=== PATIENT | female | born 1955 | race Caucasian/White ===

== ENCOUNTER → 2018-11-26 08:03 | Outpatient (CLI) | payer OTHER, SELFPAY ==
[2018-11-26 12:03] LABS: Absolute Lymphocyte Count 2.72 X10^3/ul (0.83-4.51); Absolute Neutrophil Count 3.8 X10^3/uL (2.0-7.7); Basophil# 0.08 X10^3/uL; Basophil% 1.1 % (0-1); Eosinophils% 4.1 % (0-5); Hemoglobin 15.4 g/dl (12.0-15.0); Lymphocyte # 2.72 X10^3/ul (4.0); Lymphocyte % 37.4 % (19-41); Mean Corp Hgb Conc 32.8 g/gl (32-36); Mean Corpuscular Hgb 29.6 pg (27.0-32.0); Mean Corpuscular Volume 90.4 fL (81-99); Mean Platelet Vol. 9.5 fl (6.2-12.0); Monocyte# 0.39 X10^3/uL; Monocyte% 5.4 % (0-10); Neutrophil # 3.75 X10^3/uL (2.7-7.7); Neutrophil % 51.6 % (47-70); Platelet Count 306 K/mm3 (150-450); RBC Distribution Width CV 13.1 % (11.6-14.6); RBC Distribution Width SD 42.5 fl (35.1-43.9); White Blood Count 7.3 K/mm3 (4.4-11.0)
[2018-11-26 12:04] LABS: POSITIVE COUNT NO; POSITIVE DIFFERENTIAL NO; POSITIVE MORPHOLOGY NO
[2018-11-26 12:19] LABS: ALB/GLOB Ratio 0.9 RATIO (0.9-2.4); AST(SGOT) 20 U/L (15-37); Alanine Aminotransfer ALT/SGPT 29 U/L (13-56); Albumin, Serum 3.6 g/dL (3.2-5.0); Alkaline Phosphatase 120 U/L (45-117); Anion Gap 10 (5-15); BUN 11 mg/dL (7-18); BUN/Creat Ratio 12.5 RATIO (10-20); Calcium,Total 8.9 mg/dL (8.5-10.1); Chloride 102 mmol/L (98-107); Cholesterol 190 mg/dL (200); Creatinine, Serum 0.88 mg/dL (0.55-1.02); EST Glomerular Filtration Rate 69 mL/min (>60); Est Glom Filt Rate - Afr Amer 84 mL/min (>60); Globulin 3.8 g/dL (2.2-4.2); Glucose 86 mg/dL (74-106); High Density Lipoprotein 61 mg/dL; Potassium 4.3 mmol/L (3.5-5.1); Protein, Total 7.4 g/dL (6.4-8.2); Sodium Level 138 mmol/L (136-145); Triglycerides 71 mg/dL; Very Low Density Lipoprotein 14 mg/dL (5-40)
== END ==
PROVIDERS: Family Provider Family Medicine; PCP Family Medicine; Visit Provider Family Medicine
DX: Z00.01 Encounter for general adult medical examination with abnormal findings (principal); I10 Essential (primary) hypertension
CPT/HCPCS: 36415; 80053; 80061; 85025

== ENCOUNTER → 2018-12-11 09:14 | Outpatient (CLI) | payer OTHER, SELFPAY ==
[2015-10-13 10:06] VITALS: BMI 33.0
--- NOTE | 2018-12-11 09:19 | BI_ITS ---
MAMMOGRAPHY - BILATERAL SCREENING REASON FOR EXAM: Female, 62 years old. Routine annual screening examination. PERTINENT HISTORY: Aunt with breast cancer. TECHNIQUE: Digital bilateral breast tan (3D mammographic acquisition) in the CC and MLO projections. 2-D mediolateral oblique (MLO) and craniocaudad (CC) views of both breasts were obtained. CAD: Full Field Digital Mammography with Computer Added Detection was performed. COMPARISON: Comparison is made with prior study dated September 17, 2017 and January 26, 2016. FINDINGS: Breast Composition: There are scattered areas of fibroglandular density. There are no dominant masses or suspicious calcifications. Stable benign-appearing bilateral axillary lymph nodes. No other significant abnormalities are identified. There has been no significant change since the prior study. BI/SCREENING MAMM (CAD), BILAT IMPRESSION: Stable bilateral screening mammogram. Yearly follow-up mammogram recommended. (A) ASSESSMENT CATEGORY: BIRADS Category 2: Benign. A letter regarding these results will be sent to the patient by the facility within 30 days. Approximately 10% of breast cancers are not detected by mammography. A normal mammogram should not delay biopsy of a clinically suspicious abnormality. [id number] Electronically Signed: Saad Butterfield, at 14:42 EST , Service support ,
--- NOTE | 2018-12-11 09:50 | RAD_ITS ---
STUDY: X-RAY - LUMBAR SPINE REASON FOR EXAM: Female, 62 years old. Pain TECHNIQUE: 5 view(s) of the lumbar spine were obtained. COMPARISON: None FINDINGS: Normal lumbar lordosis. There is no substantial scoliosis. There is a normal alignment of the vertebrae. Normal vertebral bodies. Minimal spurring of the endplates. Normal disc space heights. The soft tissue structures are unremarkable. RAD/L/S Spine Min 4 Views IMPRESSION: Minimal degenerative changes of the lumbar spine. Electronically Signed: Gavin Owen DO at 10:30 EST Tel [phone], Service support ,
--- NOTE | 2018-12-11 09:50 | RAD_ITS ---
STUDY: X-RAY - RIGHT HIP REASON FOR EXAM: Female, 62 years old. Pain TECHNIQUE: 3 views of the hip. COMPARISON: None. FINDINGS: Normal femoral head, neck, intertrochanteric region and visualized proximal femur. Normal acetabulum. Normal hip joint. Normal visualized superior and inferior pubic rami and ischial tuberosities. Sclerosis at the pubic tubercles. RAD/HIP, UNI W/ Pelvis 2-3 Views IMPRESSION: Normal x-ray examination of the hip. Electronically Signed: Gavin Owen DO at 10:22 EST Tel [phone], Service support ,
--- NOTE | 2018-12-11 09:50 | RAD_ITS ---
STUDY: X-RAY - LEFT SHOULDER REASON FOR EXAM: Female, 62 years old. Pain TECHNIQUE: 4 view(s) of the shoulder. COMPARISON: None. FINDINGS: Normal glenohumeral articulation. Normal acromioclavicular joint. Normal acromion. Mild spurring at the humeral. The soft tissue structures are unremarkable. Normal visualized pulmonary apex. RAD/Shoulder min 2 Views IMPRESSION: No acute bony injury of the shoulder. Electronically Signed: Gavin Owen DO at 23:58 EST Tel [phone], Service support ,
== END ==
PROVIDERS: Family Provider Family Medicine; PCP Family Medicine; Visit Provider Family Medicine
DX: M54.5 Low back pain (principal); M25.512 Pain in left shoulder; M25.551 Pain in right hip; Z12.31 Encounter for screening mammogram for malignant neoplasm of breast
CPT/HCPCS: 72110; 73030; 73502; 77063; 77067

== ENCOUNTER 2019-01-20 09:06 | Day surgery (SDC) | payer OTHER, SELFPAY ==
[2018-12-31 13:28] VITALS: BMI 33.3
--- NOTE | 2019-01-20 | GASB_PTH ---
PATIENT: MAGGI ESPINOSA LOC: EN U#:[id number] AGE/SX: 63/F ROOM: RE01/20/[address]: Dr. Jaxon Zamudio MD : 1955 BED: DIS: 01/20/2019 SPEC #: [id number] RECD: 01/20/19 14:23 STATUS: VELASQUEZ BRANDO #: [id number] NOELLE: 01/20/19 00:[address]: Jaxon Zamudio DEPT: SURGICAL PATHOLOGY RECD BY: Adam Altamirano ENTERED: 01/20/19 14:24 SP TYPE: Gastric Bx OTHR DR: Dr. Donell Harris DO Tissues: A - Gastric mucous membrane B - Gastric mucous membrane C - Transverse colon D - Sigmoid colon biopsy Procedures: Surgery Specimen Level IV HEADER OPERATION: Colonoscopy, EGD ([facility]) PRE-OP DIAGNOSIS: GERD, positive Cologuard test TISSUE SUBMITTED: A - Antral biopsy for H. pylori and pathology, B - Antral polyp biopsy, C - Transverse colon polyp biopsy, D - Sigmoid polyp biopsy MICROSCOPIC DIAGNOSIS A. Antral biopsy: Mild gastritis. See microscopic description and comment. B. Antral polyp, biopsy: Fragments of fundic gland polyp. C. Transverse colon polyp, biopsy: Tubular adenoma. D. Sigmoid polyp, biopsy: A fragment of colonic mucosa with focal hyperplastic changes. SJ:rg 01/21/19 COMMENT A. The results of immunohistochemistry for Helicobacter pylori will be reported separately ([id number]). MICROSCOPIC DESCRIPTION Slides are reviewed. A. The specimen shows fragments of gastric mucosa with chronic inflammatory cell infiltrates in the lamina propria consisting of lymphocytes and plasma cells, consistent with mild chronic gastritis. GROSS DESCRIPTION A - Received in fixative is one container labeled with the patient's name and designated antral biopsy. The specimen consists of one irregular fragment of light geiger soft tissue that measures 0.3 x 0.1 x 0.1 cm. The specimen is totally submitted in one cassette. B - Received in fixative is one container labeled with the patient's name and designated antral polyp biopsy. The specimen consists of two irregular fragments of light geiger soft tissue that in aggregate measure 0.4 x 0.3 x 0.1 cm. The specimen is totally submitted in one cassette. C - Received in fixative is one container labeled with the patient's name and designated transverse colon polyp biopsy. The specimen consists of one irregular fragment of light geiger soft tissue that measures 0.4 x 0.3 x 0.1 cm. The specimen is totally submitted in one cassette. D - Received in fixative is one container labeled with the patient's name and designated sigmoid polyp biopsy. The specimen consists of one irregular fragment of light geiger soft tissue that measures 0.3 x 0.2 x 0.1 cm. The specimen is totally submitted in one cassette. / SJ:rg 01/20/19 TC:1 CPT: 79873 x4
[2019-01-20 09:27] VITALS: BP 153/83; PULSE 76; RESP 18; TEMP 36.9; O2SAT 100; BMI 33.2
--- NOTE | 2019-01-20 10:15 | IMM_PTH ---
PATIENT: MAGGI ESPINOSA LOC: EN U#:[id number] AGE/SX: 63/F ROOM: RE01/20/[address]: Dr. Jaxon Zamudio MD : 1955 BED: DIS: 01/20/2019 SPEC #: [id number] RECD: 01/20/19 15:54 STATUS: VELASQUEZ REQ #: [id number] NOELLE: 01/20/19 10:[address]: Jaxon Zamudio DEPT: IMMUNOHISTOCHEMISTRY RECD BY: Omaira Hernandez ENTERED: 01/20/19 15:54 SP TYPE: IMMUNO OTHR DR: Dr. Donell Harris, DO Tissues: A - Stomach, NOS Procedures: H Pylori (initial) PHYSICIAN & INSTITUTION [place] [address] SPECIMEN INFORMATION: Tissue Source: A - Antral biopsy Clinical Info: GERD, positive Cologuard test Specimen Number: [id number] CPT code: 15952 METHODOLOGY: Deparaffinized sections of prefer/formalin-fixed tissue or PAP/DQ stained slides are incubated with monoclonal/polyclonal antibodies/oligonucleotide probes. Localization is made via biotin free immunoperoxidase method. Appropriate controls are performed and reacted as expected. Results on target cell population are indicated in the following table: RESULTS: ANTIBODY / CLONE RESULT Block A H Pylori (polyclonal) negative These tests were developed and their performance characteristics determined by [facility]. They may not have been cleared or approved by the U.S. Food and Drug Administration. The FDA has determined that such clearance or approval is not necessary. INTERPRETATION: A. Antral biopsy: Negative for Helicobacter pylori organisms. SJ:jose 01/22/19
--- NOTE | 2019-01-20 10:34 | OP.ENDO_ITS ---
01/20/2019 Donell Harris [address] [place] [address] Re : Upper GI endoscopy procedure for Monica Muñiz Dear Dr. Harris This procedure was performed on Sunday, January 20, 2019. My impressions and recommendations are as follows: Impressions : - Normal esophagus. - Z-line regular, 36 cm from the incisors. - Medium-sized hiatal hernia. - Erythematous mucosa in the prepyloric region of the stomach. Biopsied. - A few gastric polyps. Resected and retrieved. - Normal examined duodenum. No specimens collected. Recommendations : - Discharge patient to home. - Resume previous diet. - Continue present medications. - Await pathology results. - Repeat upper endoscopy at appointment to be scheduled. - Return to my office in 1 week. My findings are described in the full procedure note, which is enclosed. If I can be of further assistance, please feel free to contact me at Doctor phone number(s): , Fax: [phone], Work: . Sincerely, MD Jaxon Prasad MD 01/20/2019 10:34:11 AM This report has been signed electronically.
[2019-01-20 10:35] VITALS: BP 105/64; BP 153/83; PULSE 69; RESP 14; TEMP 36.9; O2SAT 94
--- NOTE | 2019-01-20 10:37 | OP.ENDO_ITS ---
01/20/2019 Donell Harris [address] [place] [address] Re : Colonoscopy procedure for Monica Muñiz Dear Dr. Harris This procedure was performed on Sunday, January 20, 2019. My impressions and recommendations are as follows: Impressions : - Two 5 to 8 mm polyps in the sigmoid colon and in the transverse colon, removed with a jumbo cold forceps. Resected and retrieved. - The examination was otherwise normal. Recommendations : - Discharge patient to home. - Resume previous diet. - Continue present medications. - Await pathology results. - Repeat colonoscopy in 3 years for surveillance. - Return to my office in 1 week. My findings are described in the full procedure note, which is enclosed. If I can be of further assistance, please feel free to contact me at Doctor phone number(s): , Fax: [phone], Work: . Sincerely, MD Jaxon Prasad MD 01/20/2019 10:37:09 AM This report has been signed electronically.
[2019-01-20 10:40] VITALS: BP 103/68; BP 153/83; PULSE 71; RESP 16; O2SAT 97
[2019-01-20 10:45] VITALS: BP 104/54; BP 109/63; BP 153/83; PULSE 64; PULSE 65; RESP 16; O2SAT 94; O2SAT 95
[2019-01-20 10:56] VITALS: BP 111/66; BP 153/83; PULSE 62; RESP 16; TEMP 36.7; O2SAT 99
[2019-01-20 11:11] VITALS: BP 153/83
== END 2019-01-20 11:22 | disposition home or self-care (01) ==
LOC: EN 09:07 → AC 09:07
PROVIDERS: Family Provider Family Medicine; PCP Family Medicine; Referring Provider Family Medicine; Visit Provider Surgery
PROC: 0DJD8ZZ Inspection of Lower Intestinal Tract, Via Natural or Artificial Opening Endoscopic (ICD-10-PCS; CPT 45378; principal; 2019-01-20 10:10)
DX: D12.3 Benign neoplasm of transverse colon (principal); K29.70 Gastritis, unspecified, without bleeding; K31.7 Polyp of stomach and duodenum; K44.9 Diaphragmatic hernia without obstruction or gangrene; K21.9 Gastro-esophageal reflux disease without esophagitis; I10 Essential (primary) hypertension; F41.9 Anxiety disorder, unspecified; F32.9 Major depressive disorder, single episode, unspecified; F17.200 Nicotine dependence, unspecified, uncomplicated; J44.9 Chronic obstructive pulmonary disease, unspecified; Z79.899 Other long term (current) drug therapy
CPT/HCPCS: 43239; 45380; 88305; 88342; J7120; J1610

== ENCOUNTER → 2021-02-28 | Outpatient (CLI) | payer MEDICARE, BC, SELFPAY | END | disposition home or self-care (01) | LOC: LABSPEC 10:00 | PROVIDERS: PCP Family Medicine; Referring Provider Family Medicine; Visit Provider Family Medicine | DX: R05 Cough (principal) | CPT/HCPCS: 87635; U0005; U0003 ==

== ENCOUNTER → 2021-05-31 10:58 | Outpatient (CLI) | payer MEDICARE, BC, SELFPAY ==
[2021-05-08 14:03] VITALS: BMI 32.8
--- NOTE | 2021-05-31 11:00 | BI_ITS ---
MAMMOGRAPHY - BILATERAL SCREENING REASON FOR EXAM: Female, 65 years old. Routine annual screening examination. PERTINENT HISTORY: Aunt with breast cancer. TECHNIQUE: Digital bilateral breast daljit (3D mammographic acquisition) in the CC and MLO projections. 2-D mediolateral oblique (MLO) and craniocaudad (CC) views of both breasts were obtained. CAD: Full Field Digital Mammography with Computer Added Detection was performed. COMPARISON: Comparison is made with prior study 12/11/2018 and 09/17/2017. FINDINGS: Breast Composition: There are scattered areas of fibroglandular density. There are no dominant masses or suspicious calcifications. Stable small benign-appearing bilateral axillary lymph nodes. No other significant abnormalities are identified. There has been no significant change since the prior study. BI/SCRN MAMM (CAD)W/DALJIT BILAT IMPRESSION: Stable bilateral screening mammogram. Yearly follow-up mammogram recommended. (A) ASSESSMENT CATEGORY: BIRADS Category 2: Benign. A letter regarding these results will be sent to the patient by the facility within 30 days. Approximately 10% of breast cancers are not detected by mammography. A normal mammogram should not delay biopsy of a clinically suspicious abnormality. [id number] Electronically Signed: Saad Butterfield MD at 11:59 EDT , Service support ,
--- NOTE | 2021-05-31 11:01 | BD_ITS ---
STUDY: DUAL ENERGY X-RAY ABSORPTIOMETRY / DXA REASON FOR EXAM: Female, 65 years old. The patient is postmenopausal. Status post right hip replacement. TECHNIQUE: Bone Mineral Density (BMD) measurements of lumbar spine and left hip were obtained. COMPARISON: None. FINDINGS: Lumbar Spine (L1-L4): g/cm2 (1.027) / T-score (0.1) / Z-score (1.9) Findings are suggestive of normal bone density with a low fracture risk. Left Femur Total: g/cm2 (0.847) / T-score (-0.8) / Z-score (0.5) Left Femoral Neck: g/cm2 (0.698) / T-score (-1.4) / Z-score (0.2) BD/Dexa Bone Density Study IMPRESSION: The patient is considered osteopenic as outlined below according to World Mayank Organization (WHO) criteria with a low fracture risk. Reference Information: The T-score is the number of standard deviations above or below the standard which is normal for young adults at their peak bone mineral density. The World Health Organization (WHO) interprets the T-scores as follows: Above -1 Normal bone density Between -1 and -2.5 Osteopenia Equal to / or below -2.5 Osteoporosis As a practical clinical guideline, osteopenia may be graded as follows: Mild -1 through -1.5 Moderate -1.6 through -2.0 Severe -2.1 through -2.4 The Z-score is the number of standard deviations above or below age-matched controls. A Z-score of less than -1.5 would be considered abnormal. References: 1. NIH Osteoporosis and Related Bone Diseases www osteo.org 2. International Society for Clinical Densitometry www iscd.org 3. National Osteoporosis Foundation www nof.org Electronically Signed: aSad Butterfield MD at 7:47 EDT , Service support ,
== END ==
PROVIDERS: PCP Family Medicine; Referring Provider Nurse Practitioner Women's Health; Visit Provider Nurse Practitioner Women's Health
DX: Z78.0 Asymptomatic menopausal state (principal); Z12.31 Encounter for screening mammogram for malignant neoplasm of breast
CPT/HCPCS: 77063; 77067; 77080

== ENCOUNTER 2021-10-29 11:57 | Outpatient (CLI) | payer MEDICARE, BC, SELFPAY | END 2021-10-29 23:59 | disposition short-term general hospital (02) | LOC: LABSPEC 11:58 | PROVIDERS: PCP Family Medicine; Visit Provider Family Medicine | DX: Z20.822 Contact with and (suspected) exposure to COVID-19 (principal) | CPT/HCPCS: 87635; U0003 ==

== ENCOUNTER → 2022-12-06 | Outpatient (CLI) | payer MEDICARE, BC, SELFPAY ==
[2022-12-06 17:40] LABS: Absolute Neutrophil Count 4.9 X10^3/uL (2.0-7.7); Basophil# 0.08 X10^3/uL; Basophil% 0.8 % (0-1); Eosinophils% 2.1 % (0-5); Hematocrit 41.8 % (37-47); Hemoglobin 14.5 g/dL (12.0-15.0); Lymphocyte % 37.7 % (19-41); Mean Corp Hgb Conc 34.7 g/dL (32-36); Mean Corpuscular Hgb 31.7 pg (27.0-32.0); Mean Corpuscular Volume 91.5 fL (81-99); Mean Platelet Vol. 9.1 fl (6.2-12.0); Monocyte# 0.73 X10^3/uL; Monocyte% 7.7 % (0-10); NRBC Flagged by Analyzer 0 % (0-5); Neutrophil % 51.4 % (47-70); Platelet Count 331 K/mm3 (150-450); RBC Distribution Width CV 12.3 % (11.6-14.6); RBC Distribution Width SD 40.6 fl (35.1-43.9); Red Blood Count 4.57 M/mm3 (4.2-5.4); White Blood Count 9.5 K/mm3 (4.4-11.0)
[2022-12-06 17:43] LABS: AST(SGOT) 14 U/L (15-37); Alanine Aminotransfer ALT/SGPT 21 U/L (13-56); Albumin, Serum 3.7 g/dL (3.2-5.0); Alkaline Phosphatase 93 U/L (45-117); Anion Gap 4 (5-15); BUN 11 mg/dL (7-18); BUN/Creat Ratio 12.6 RATIO (10-20); Calcium,Total 9.7 mg/dL (8.5-10.1); Chloride 97 mmol/L (98-107); Cholesterol 177 mg/dL (200); Creatinine, Serum 0.88 mg/dL (0.55-1.02); EST Glomerular Filtration Rate 68 mL/min (>60); Est Glom Filt Rate - Afr Amer 83 mL/min (>60); Globulin 3.6 g/dL (2.2-4.2); Glucose 106 mg/dL (74-106); High Density Lipoprotein 64 mg/dL; Potassium 4.4 mmol/L (3.5-5.1); Protein, Total 7.3 g/dL (6.4-8.2); Sodium Level 131 mmol/L (136-145); Triglycerides 125 mg/dL; Very Low Density Lipoprotein 25 mg/dL (5-40)
== END | disposition home or self-care (01) ==
LOC: BFHLAB 15:24
PROVIDERS: PCP Family Medicine; Visit Provider Family Medicine
DX: I10 Essential (primary) hypertension (principal)
CPT/HCPCS: 36415; 80053; 80061; 85025

== ENCOUNTER → 2022-12-26 | Outpatient (CLI) | payer MEDICARE, BC, SELFPAY ==
--- NOTE | 2022-12-26 15:42 | RAD_ITS ---
STUDY: X-RAY CHEST REASON FOR EXAM: Female, 67 years old. Cough. TECHNIQUE: PA and lateral views of the chest. COMPARISON: May 28, 2013. FINDINGS: Chronic interstitial coarsening without focal mass or infiltrate. There is no demonstrated pleural abnormality. Normal size heart. Normal mediastinum and ashvin. Normal visualized pulmonary arteries. Normal visualized aortic arch and descending thoracic aorta. There are diffuse degenerative changes of the visualized thoracic spine. There is degenerative osteoarthritis of the bilateral shoulders. There is no demonstrated abnormality of the visualized soft tissue structures of the upper abdomen. RAD/Chest PA and Lateral IMPRESSION: Degenerative changes, as described above. No demonstrated acute cardiopulmonary process. No major interval change. Electronically Signed: Ben James DO at 17:44 EDT ,
== END | disposition home or self-care (01) ==
PROVIDERS: PCP Family Medicine; Referring Provider Family Medicine; Visit Provider Family Medicine
DX: R05.9 Cough, unspecified (principal)
CPT/HCPCS: 71046

== ENCOUNTER 2023-01-24 09:39 | Day surgery (SDC) | payer MEDICARE, BC, SELFPAY ==
[2023-01-24 10:05] VITALS: BP 130/75; PULSE 68; RESP 18; TEMP 36.8; O2SAT 99; BMI 27.3
[2023-01-24] MEDS: Lactated Ringers 1,000 ML 15 ML IV (10:10)
--- NOTE | 2023-01-24 10:27 | H&P.OPEN ---
HPI - General HPI Narrative MAGGI ESPINOSA, is a 67 F who presents for follow-up colonoscopy. She had a colonoscopy about 4 years ago and during which a polyp was identified and she was recommended to repeat in 3 years. She denies any abdominal pain or blood in the stool. No family history of colon cancer. [facility] Medical History (Updated 01/24/23 @ 10:[address] Sukumar Banegas MD) Abrasion Acute bronchitis, unspecified Anxiety Arthritis Chronic cough COPD (chronic obstructive pulmonary disease) Depression Emphysema, unspecified GERD (gastroesophageal reflux disease) History of IBS History of steroid therapy Hypertension Loss of hearing Osteopenia Post-menopausal Shortness of breath on exertion Smoker Thyroid disease Thyroid nodule Wears dentures Wears glasses Home Medications amlodipine 5 mg tablet 5 mg PO DAILY 10/13/15 [History Last Taken 01/24/23] fluoxetine 20 mg capsule 20 mg PO DAILY 10/13/15 [History Last Taken Unknown] losartan 100 mg-hydrochlorothiazide 12.5 mg tablet 1 tab PO DAILY 10/13/15 [History Last Taken Unknown] metoprolol tartrate 25 mg tablet 12.5 mg PO BID 10/13/15 [History Last Taken 01/24/23] omeprazole 20 mg capsule,delayed release 40 mg PO DAILY 10/13/15 [History Last Taken 01/24/23] albuterol sulfate 90 mcg/actuation breath activated powder inhaler 1 inh inhalation Q6H PRN SOB 01/20/23 [History Last Taken Unknown] Allergy/AdvReac Type Severity Reaction Status Date / Time azithromycin Allergy Mild hives Verified 01/24/23 09:59 shellfish derived Allergy Swelling Verified 01/24/23 09:59 Family History Mother Hypertension Heart disease CVA (cerebral vascular accident) Father Cancer liver Daughter Asthma Surgical History (Updated 01/20/23 @ 12:11 by Loren Clemons) History of carpal tunnel release History of colonoscopy History of hysterectomy History of tympanoplasty of right ear Social History household members: spouse and family number of children: 1 current occupational status: retired history of recent travel: No Smoking Status: Current every day smoker tobacco type: cigarettes alcohol intake: current alcohol intake frequency: 0-2 drinks per day substance use type: does not use what type of physical activity do you participate in: walking seatbelt use: always do you feel safe at home: Yes additional social history: Tristian Griffith Past Medical/Surgical History Planned Operation Planned Operative Procedure/s: CSCOPE OA S.O.S: No Previous Hospitalizations/Surgeries HX Hospitalizations: No HX of Surgeries: hysterectomy right ear surgery/stapedectomy carpal tunnel right dental surgery colonoscopy 15 yrs ago Any Problems With Anesthesia: Yes (was able to feel colonoscopy 15 yrs ago) You/Your Family Experience Fever (Hyperthermia) With Anes: No Cholinesterase deficiency: No Cardiovascular Hx Chest Pain within Last 2 months: No Hx of Irregular Heartbeat and/or Afib: No Hx Heart Attack: No Hx Congestive Heart Failure: No Hx Rheumatic Fever: No Hx Hypertension: Yes (controlled with med) Hx Internal Defibrillator: No Hx Pacemaker: No Hx Cardiac Catheterization: No Hx Cardiac Surgery/Stents/Etc.: No Hx Stress Test: No Hx Pain in Legs when Walking/Leg Cramps: No Respiratory Chronic Cough: Yes HX of Shortness of Breath: Yes (sob with 2 flights of stairs) Hoarseness: No Hx Chronic Obstructive Pulmonary Disease (COPD): Yes (mild at this time) Hx Asthma: No Hx Emphysema: No Hx Sleep Apnea: No Hx Respiratory Tract Infection/Cold (presently): No Do You Snore Loudly (louder than talking or can be heard): No Do You Often Feel Tired/ Fatigued/ Sleepy Dring Daytime?: Yes Has Anyone Observed You Stop Breathing During Sleep?: No Result (for STOP score): Positive Hx Smoking: Yes (1ppd for 40 yrs) Smoking Status: Current every day smoker Gastrointestinal Hx Gastroesophageal Reflux: Yes Controlled With Meds: Yes Hx Gastrointestinal Disorders: Yes (ibs with constipation) Hx Gastrointestinal Bleed: No Hx Ulcer: No Hx Hiatal Hernia: No Difficulty Chewing/Swallowing: No Special diet followed at home: No Hx Unplanned Weight Loss of 20#: No HX Unplanned Weight Gain of 20#: No Neurological Hx Seizures: No HX Syncope/Blackout Spells/Unconsciousness: No Hx Transient Ischemic Attacks (TIA): No Hx Multiple Sclerosis: No Hx Parkinson's Disease: No Hx Head/Neck Injury: No Hx Headaches: No Hx Back Injury/Pain: Yes (lower back pain/ddd) Recent Onset of Speech Difficulty: No Restless Legs: No Does patient have nerve stimulator: No Blood Disorder Hx Leukemia: No Bleeding Tendencies: No Hx Deep Vein Thrombosis: No Hx High Cholesterol: No Blood Transmitted Disease: No Hx Hepatitis: No Hx Cirrhosis: No Hx Anemia: No Hx Blood Disorders: No Reproduction : No Is Patient Lactating: No Hx Hysterectomy: Yes Hx Tubal Ligation: No Are You Post Menopause: Yes Genitourinary Hx Renal Disease: No Musculoskeletal Hx Arthritis: Yes Hx Rheumatoid Arthritis: No Hx Gout: No Recent Onset of an Orthopedic Problem: No Endocrine Hx Diabetes: No Thyroid Disease: No Hx Steroid Therapy: No Psycho/Social Hx Substance Use: No Hx Alcohol Use: Yes (2-3 beers daily) Hx Anxiety: Yes (on med) Hx Depression: Yes (on med) Mental Illness: No Hx Dementia: No Miscellaneous Hx Cancer: No Recent Exposure to Contagious Disease: No Hx of C-Diff: No Any Loose Teeth: No (full dentures and implants) Allergies azithromycin Allergy (Mild, Verified 01/24/23 09:59) hives shellfish derived Allergy (Verified 01/24/23 09:59) Swelling Discharge Is Pt Admitted From a [facility], or a Care Home: No After D/C, Where Do you Plan to Go: Return Home From the [facility] History Number of Risk Factors: 5 Vital Signs Vital Signs Vital Signs: 01/24/23 10:05 01/24/23 10:05 Temperature 98.2 F Temperature Source Temporal Pulse Rate 68 Respiratory Rate 18 Respiratory Pattern Normal Blood Pressure 130/75 H Blood Pressure Mean 93 Blood Pressure Source Monitor Blood Pressure Position Semi-Fowlers Blood Pressure Location Left Arm Pulse Ox 99 Oxygen Delivery Method Room Air Weight Weight: 149 lb 14.629 oz Body Mass Index (BMI) 27.3 Physical Exam Const alert and oriented x3 HEENT normocephalic Eyes PERRL Resp normal respiratory effort and normal air movement Cardio regular rate and regular rhythm GI soft to palpation, non-tender and non-distended Extremity normal to inspection Assessment & Plan Assessment/Plan (1) History of colon polyps: PLAN: I explained endoscopy in detail to the patient. I explained the risks including but not limited to stroke or heart attack with anesthesia, perforation of the GI tract, bleeding, infection. I explained that any of these could necessitate further emergency surgery. The patient understands and all questions were answered sufficiently. The patient wishes to proceed with procedure. Sukumar Banegas MD Pager: [facility] [address] [place] [address], [address] [place] [address] Office: Surgery Risks - Colonoscopy Risks Include but are not Limited To: Risks include but are not limited to: Bleeding, perforation requiring further surgery, inability to complete colonoscopy requiring barium enema.
--- NOTE | 2023-01-24 10:45 | COLBX_PTH ---
PATIENT: MAGGI ESPINOSA LOC: EN U#:[id number] AGE/SX: 67/F ROOM: RE01/24/[address]: Dr. Sukumar Banegas MD : 1955 BED: DIS: 01/24/2023 SPEC #: [id number] RECD: 01/26/23 12:32 STATUS: VELASQUEZ REJose #: [id number] NOELLE: 01/24/23 10:[address]: Sukumar Banegas DEPT: SURGICAL PATHOLOGY RECD BY: Jeanie Valle ENTERED: 01/27/23 07:21 SP TYPE: COLON BX OTHR DR: Dr. Donell Harris, Tissues: A - Sigmoid colon biopsy B - Sigmoid colon biopsy Procedures: Surgery Specimen Level IV HEADER OPERATION: Colonoscopy ? open access (MAC) with polypectomy PRE-OP DIAGNOSIS: History of colon polyps TISSUE SUBMITTED: A ? Sigmoid polyp biopsy, B ? Distal sigmoid polyp MICROSCOPIC DIAGNOSIS A. Sigmoid colon polyp, biopsy: Hyperplastic polyp. B. Distal sigmoid colon polyp, biopsy: Fragments of hyperplastic polyp. AM:jose 01/28/2023 MICROSCOPIC DESCRIPTION Slides are reviewed. GROSS DESCRIPTION A - Received in fixative is one container labeled with the patient's name and designated sigmoid colon polyp. The specimen consists of two irregular fragments of light geiger soft tissue that in aggregate measure 0.7 x 0.5 x 0.1 cm. The specimen is totally submitted in one cassette. B - Received in fixative is one container labeled with the patient's name and designated distal sigmoid polyp. The specimen consists of two irregular fragments of light geiger soft tissue that in aggregate measure 1.2 x 0.6 x 0.2 cm. The specimen is totally submitted in one cassette. / AM:jose 01/27/2023 TC:5 [facility]: [id number] x2
--- NOTE | 2023-01-24 10:53 | OP.COLON_ITS ---
Patient Name: Monica Muñiz Procedure Date: 01/24/2023 10:23 AM Date of : 1955 Age: 67 Procedure: Colonoscopy Indications: High risk colon cancer surveillance: Personal history of colonic polyps Providers: Sukumar Banegas MD Referring MD: Sukumar Banegas MD Medicines: Monitored Anesthesia Care Patient Profile: This is a 67 year old female. Refer to note in patient chart for documentation of history and physical. Last Colonoscopy: more than 3 years ago. Complications: No immediate complications. Procedure: Pre-Anesthesia Assessment: - Prior to the procedure, a History and Physical was performed, and patient medications and allergies were reviewed. The patient's tolerance of previous anesthesia was also reviewed. The risks and benefits of the procedure and the sedation options and risks were discussed with the patient. All questions were answered, and informed consent was obtained. Prior Anticoagulants: The patient has taken no previous anticoagulant or antiplatelet agents. After reviewing the risks and benefits, the patient was deemed in satisfactory condition to undergo the procedure. After I obtained informed consent, the scope was passed under direct vision. Throughout the procedure, the patient's blood pressure, pulse, and oxygen saturations were monitored continuously. The colonoscope was introduced through the anus and advanced to the cecum, identified by appendiceal orifice and ileocecal valve. The colonoscopy was performed without difficulty. The patient tolerated the procedure well. The quality of the bowel preparation was good. Scope In: 10:33:18 AM Scope Withdrawal Time 0 hours 10 minutes 12 seconds Scope Out: 10:50:46 AM Total Procedure Duration Time 0 hours 17 minutes 28 seconds Findings: Four sessile polyps were found in the sigmoid colon. These polyps were removed with a hot snare. Resection and retrieval were complete. The exam was otherwise without abnormality on direct and retroflexion views. Impression: - Four polyps in the sigmoid colon, removed with a hot snare. Resected and retrieved. - The examination was otherwise normal on direct and retroflexion views. Recommendation: - Discharge patient to home. - Resume previous diet. - Continue present medications. - Await pathology results. - Repeat colonoscopy in 3 years for surveillance of multiple polyps. Procedure Code(s): --- Professional --- 67712, Colonoscopy, flexible; with removal of tumor(s), polyp(s), or other lesion(s) by snare technique Diagnosis Code(s): --- Professional --- Z86.010, Personal history of colonic polyps D12.5, Benign neoplasm of sigmoid colon CPT copyright 2017 [employer]. All rights reserved. The codes documented in this report are preliminary and upon inpatient coder review may be revised to meet current compliance requirements. Sukumar Banegas MD 01/24/2023 10:53:26 AM This report has been signed electronically. Number of Addenda: 0 Note Initiated On: 01/24/2023 10:23 AM
--- NOTE | 2023-01-24 10:54 | OP.CCLET_ITS ---
01/24/2023 Donell Harris [address] [place] [address] Re : Colonoscopy procedure for Monica Muñiz Dear Dr. Harris This procedure was performed on Tuesday, January 24, 2023. My impressions and recommendations are as follows: Impressions : - Four polyps in the sigmoid colon, removed with a hot snare. Resected and retrieved. - The examination was otherwise normal on direct and retroflexion views. Recommendations : - Discharge patient to home. - Resume previous diet. - Continue present medications. - Await pathology results. - Repeat colonoscopy in 3 years for surveillance of multiple polyps. My findings are described in the full procedure note, which is enclosed. If I can be of further assistance, please feel free to contact me at Doctor phone number(s): , Work: . Sincerely, Sukumar Banegas MD 01/24/2023 10:53:26 AM This report has been signed electronically.
[2023-01-24 10:55] VITALS: BP 130/75; BP 99/71; PULSE 87; RESP 16; TEMP 36.5; O2SAT 95
[2023-01-24 11:00] VITALS: BP 103/72; BP 130/75; PULSE 86; RESP 16; O2SAT 95
[2023-01-24 11:05] VITALS: BP 102/72; BP 130/75; PULSE 80; RESP 16; O2SAT 94
[2023-01-24 11:10] VITALS: BP 108/72; BP 130/75; PULSE 78; RESP 16; TEMP 36.5; O2SAT 95
[2023-01-24 11:44] VITALS: BP 130/75
== END 2023-01-24 11:51 | disposition home or self-care (01) ==
LOC: EN 09:42 → AC 09:45
PROVIDERS: PCP Family Medicine; Referring Provider Surgery; Visit Provider Surgery
PROC: 0DJD8ZZ Inspection of Lower Intestinal Tract, Via Natural or Artificial Opening Endoscopic (ICD-10-PCS; CPT 45378; principal; 2023-01-24 10:40)
DX: Z12.11 Encounter for screening for malignant neoplasm of colon (principal); J43.9 Emphysema, unspecified; K63.5 Polyp of colon; F17.210 Nicotine dependence, cigarettes, uncomplicated; I10 Essential (primary) hypertension; Z86.010 Personal history of colon polyps; Z79.899 Other long term (current) drug therapy; K21.9 Gastro-esophageal reflux disease without esophagitis; E07.9 Disorder of thyroid, unspecified
CPT/HCPCS: 45385; 88305; J7120; J2405

== ENCOUNTER → 2023-02-17 | Outpatient (CLI) | payer MEDICARE, BC, SELFPAY ==
--- NOTE | 2023-02-17 12:10 | BI_ITS ---
MAMMOGRAPHY - BILATERAL SCREENING REASON FOR EXAM: Female, 67 years old. Routine annual screening examination. PERTINENT HISTORY: Aunt with breast cancer. TECHNIQUE: Digital bilateral breast daljit (3D mammographic acquisition) in the CC and MLO projections. 2-D mediolateral oblique (MLO) and craniocaudad (CC) views of both breasts were obtained. CAD: Full Field Digital Mammography with Computer Added Detection was performed. COMPARISON: Comparison is made with prior study May 31, 2021 and December 11, 2018. FINDINGS: Breast Composition: There are scattered areas of fibroglandular density. There are no dominant masses or suspicious calcifications. Stable fat-containing bilateral axillary lymph nodes. No other significant abnormalities are identified. There has been no significant change since the prior study. BI/SCRN MAMM (CAD)W/DALJIT BILAT IMPRESSION: Stable bilateral screening mammogram. Yearly follow-up mammogram recommended. (A) ASSESSMENT CATEGORY: BIRADS Category 2: Benign. A letter regarding these results will be sent to the patient by the facility within 30 days. Approximately 10% of breast cancers are not detected by mammography. A normal mammogram should not delay biopsy of a clinically suspicious abnormality. [id number] Electronically Signed: Saad Butterfield MD at 12:54 EDT ,
== END | disposition home or self-care (01) ==
LOC: OPBI 12:08
PROVIDERS: PCP Family Medicine; Referring Provider Family Medicine; Visit Provider Family Medicine
DX: Z12.31 Encounter for screening mammogram for malignant neoplasm of breast (principal); Z80.3 Family history of malignant neoplasm of breast
CPT/HCPCS: 77063; 77067

== ENCOUNTER → 2023-07-07 | Outpatient (CLI) | payer MEDICARE, BC, SELFPAY ==
--- NOTE | 2023-07-07 10:37 | ART_ITS ---
Reason For Study: DECREASED PULSES, LEG DISCOMFORT Left Segmental Pressures Left brachial= 121mmHg. Left posterior tibial artery = 143mmHg. Left dorsalis pedis artery = 132mmHg. The left posterior tibial artery waveforms are triphasic. The left dorsalis pedis waveforms are triphasic. Right Segmental Pressures Right brachial= 125mmHg. Right posterior tibial artery = 145mmHg. Right dorsalis pedis artery = 134mmHg. The right posterior tibial artery waveforms are triphasic. The right dorsalis pedis waveforms are triphasic. Indices The right resting ankle brachial index is 1.16. The right ankle brachial index by the posterior tibial artery is 1.16. The right ankle brachial index by the dorsalis pedis is 1.07. The left resting ankle brachial index is 1.14. The left ankle brachial index by the posterior tibial artery is 1.14. The left ankle brachial index by the dorsalis pedis is 1.06. VL/Ankle Brachial Index Interpretation Summary Right ZACHARIAH 1.16, normal. Doppler/PVR waveforms of the right leg normal at rest. Left ZACHARIAH 1.14, normal. Doppler/PVR waveforms of the left leg normal at rest. Ordering Physician: Brenda Harris Referring Physician: BRENDA HARRIS DO Performed By: Isha Valles RVT, RDCS
== END | disposition home or self-care (01) ==
PROVIDERS: PCP Family Medicine; Referring Provider Family Medicine; Visit Provider Family Medicine
DX: I73.9 Peripheral vascular disease, unspecified (principal)
CPT/HCPCS: 93922

== ENCOUNTER → 2023-12-10 | Outpatient (CLI) | payer MEDICARE, BC, SELFPAY ==
--- OUTSIDE RECORDS SUMMARY | 2023-12-10 09:54 | XMS RPT_ITS | CCD ---
Author Name Unknown Address [address] [place] [address] Organization [facility] Care Team Providers Care Load Test Mechanic Name Role Phone Tien Mora MD Unavailable [phone] Sorin Davis MD Unavailable Tien Mora MD Unavailable Sorin Davis MD Unavailable [phone] Brenda Harris DO Primary Care Provider PROVIDER, UNKNOWN Attending Unavailable PROVIDER, UNKNOWN Admitting Unavailable PATIENT, SELF Referring Unavailable BRENDA HARRIS Primary Care Unavailable BRENDA HARRIS Primary Care Unavailable Allergies Allergy Classification Reported Allergen(s) Allergy Type Date of Onset Reaction(s) Facility (15 sources) Erythromycin; Translations: [ERYTHROMYCIN] Drug Allergy 8 Hives [facility] (12 sources) Shellfish; Translations: [SHELLFISH ALLERGY] Propensity to adverse reactions to drug 1 Vomiting [facility] Work Phone: (1 source) Shellfish Drug Allergy 1 [facility] Medications Current Medications Medication Drug Class(es) Dates Sig (Normalized) Sig (Original) amoxicillin 875 mg oral tablet (1 source) Penicillin-class Antibacterial Start: 07-11-2023 End: 07-18-2023 take 1 tablet by mouth twice daily amoxicillin (AMOXIL) 875 mg tablet Take 1 tablet by mouth two times a day for 7 days. 14 tablet 0 07/11/2023 07/18/2023 Active Completed/Discontinued Medications Medication Drug Class(es) Dates Sig (Normalized) Sig (Original) amLODIPine 5 mg oral tablet (9 sources) Dihydropyridine Calcium Channel Bryanna Start: 10-13-2015 amLODIPine (NORVASC) 5 mg tablet Take 5 mg by mouth. 0 10/13/2015 Active Problems Active Problems Problem Classification Problem Date Documented Da te Episodic/Chronic Inflammation; infection of eye (except that caused by tuberculosis or sexually transmitteddisease) (1 source) Acute conjunctivitis of bilateral eyes; Translations: [Unspecified acute conjunctivitis, bilateral] Episodic Neoplasms of unspecified nature or uncertain behavior (1 source) Neoplastic disease of uncertain behavior; Translations: [Neoplasm of uncertain behavior, unspecified] Episodic Other and unspecified benign neoplasm (2 sources) Benign neoplasm of soft tissue; Translations: [Melanocytic nevi, unspecified] Episodic Other skin disorders (4 sources) Skin tag; Translations: [Other hypertrophic disorders of the skin] Episodic Other skin disorders (2 sources) Asteatosis cutis; Translations: [Xerosis cutis] Episodic Otitis media and related conditions (1 source) Acute right otitis media; Translations: [Otitis media, unspecified, right ear] 07-11-2023 Episodic Past or Other Problems Problem Classification Problem Date Documented Da te Episodic/Chronic Diseases of mouth; excluding dental (20 sources) Disorder of lip; Translations: [Diseases of lips] Onset: 05-19-2013 05-19-2013 Episodic Other and unspecified benign neoplasm (11 sources) Benign neoplasm of skin; Translations: [Other benign neoplasm of skin, unspecified] Onset: 03-18-2012 03-18-2012 Episodic Other inflammatory condition of skin (13 sources) Seborrheic dermatitis; Translations: [Seborrheic dermatitis, unspecified] Onset: 09-11-2011 Episodic Other skin disorders (13 sources) Ephelis; Translations: [Freckles] Onset: 03-30-2018 Episodic Other skin disorders (13 sources) Lentiginosis; Translations: [Other melanin hyperpigmentation] Onset: 03-30-2018 Episodic Other skin disorders (15 sources) Seborrheic keratosis; Translations: [Other seborrheic keratosis] Onset: 03-30-2018 Episodic Other skin disorders (11 sources) Inflamed seborrheic keratosis; Translations: [Inflamed seborrheic keratosis] Onset: 03-18-2012 03-18-2012 Episodic Results Test Name Value Interpretation Reference Range Facil ity Vital Signs Date Time Vital Sign Value Performing Clinician Faci litmarissa 07-11-2023 11:08-0400 Body temperature 98.4 [degF] Jose Pendlebury DATABASE SECURITY ADMINISTRATOR.DIRECTOR OF AUDIOLOGY Work Phone: [facility] 07-11-2023 11:08-0400 Body weight 83.92 kg Jose Pendmaurisiobury DATABASE SECURITY ADMINISTRATOR.DIRECTOR OF AUDIOLOGY Work Phone: [facility] 07-11-2023 11:08-0400 Diastolic blood pressure 80 mm[Hg] Jose Pendlebury DATABASE SECURITY ADMINISTRATOR.DIRECTOR OF AUDIOLOGY Work Phone: [facility] 07-11-2023 11:08-0400 Heart rate 85 /min Jose Pendlebury DATABASE SECURITY ADMINISTRATOR.DIRECTOR OF AUDIOLOGY Work Phone: [facility] 07-11-2023 11:08-0400 Respiratory rate 18 /min Jose Pendlebury DATABASE SECURITY ADMINISTRATOR.DIRECTOR OF AUDIOLOGY Work Phone: [facility] 07-11-2023 11:08-0400 SaO2% (BldA) [Mass fraction] 98 % Jose Heardbury DATABASE SECURITY ADMINISTRATOR.DIRECTOR OF AUDIOLOGY Work Phone: [facility] 07-11-2023 11:08-0400 Systolic blood pressure 125 mm[Hg] Jose Pendlebury DATABASE SECURITY ADMINISTRATOR.DIRECTOR OF AUDIOLOGY Work Phone: [facility] 03-09-2023 10:36-0400 Body temperature 98.1 [degF] Regine Lidia DATABASE SECURITY ADMINISTRATOR.DIRECTOR OF AUDIOLOGY Work Phone: [facility] 03-09-2023 10:36-0400 Body weight 82.56 kg Reginearsalan Whitneyk DATABASE SECURITY ADMINISTRATOR.DIRECTOR OF AUDIOLOGY Work Phone: [facility] 03-09-2023 10:36-0400 Diastolic blood pressure 80 mm[Hg] Regine Lidia DATABASE SECURITY ADMINISTRATOR.DIRECTOR OF AUDIOLOGY Work Phone: [facility] 03-09-2023 10:36-0400 Heart rate 66 /min Regine Lidia DATABASE SECURITY ADMINISTRATOR.DIRECTOR OF AUDIOLOGY Work Phone: [facility] 03-09-2023 10:36-0400 Respiratory rate 18 /min Regine Lidia DATABASE SECURITY ADMINISTRATOR.DIRECTOR OF AUDIOLOGY Work Phone: [facility] 06-04-2023 10:36-0400 SaO2% (BldA) [Mass fraction] 95 % Regine Lidia DATABASE SECURITY ADMINISTRATOR.DIRECTOR OF AUDIOLOGY Work Phone: [facility] 03-09-2023 10:36-0400 Systolic blood pressure 132 mm[Hg] Regine Lidia DATABASE SECURITY ADMINISTRATOR.JUAN CARLOS Work Phone: [facility] Encounters Encounter Date Encounter Type Care Provider Facility Start: 07-11-2023 End: 07-11-2023 [facility] Facility:[facility] Start: 07-11-2023 End: 07-11-2023 Office outpatient visit 25 minutes Jose Heardyvrose DATABASE SECURITY ADMINISTRATOR.DIRECTOR OF AUDIOLOGY Work Phone: [facility] Procedures Date Procedure Procedure Detail Performing Clinician Start: 02-27-2022 Unlisted px skin muc membrane & subq tissue Tien Mora MD Work Phone: Plan of Treatment Date Care Activity Detail Author Start: 11-26-2023 Cholesterol [Mass/volume] in Serum or Plasma Cholesterol [facility] Start: 07-06-2023 Influenza vaccination Influenza Vaccine (#1) [facility] Start: 06-06-[address] [facility] Start: 10-06-2022 ADVANCE DIRECTIVE DISCUSSION ADVANCE DIRECTIVE DISCUSSION [facility] Start: 10-06-2022 DEPRESSION ASSESSMENT DEPRESSION ASSESSMENT [facility] Start: 07-06-2022 Influenza vaccination Influenza Vaccine (#1) [facility] Start: 01-07-2022 End: 01-07-2022 Patient encounter procedure 01/07/2022 Office Visit Dermatology Tien Mora MD [address] [place], [place] [id number] [facility] Derm[facility] Start: 12-07-2021 COVID-19 Vaccine (4 - Booster for Moderna series) COVID-19 Vaccine (4 - Booster for Moderna series) [facility] Start: 10-04-2021 COVID-19 Vaccine (4 - Booster for Moderna series) COVID-19 Vaccine (4 - Booster for Moderna series) [facility] Start: 10-04-2021 Covid-19 Vaccine (4 - Moderna series) Covid-19 Vaccine (4 - Moderna series) [facility] Start: 05-06-2021 Influenza vaccination Influenza Vaccine (#1) [facility] Start: 12-04-2020 Annual wellness visit Annual Wellness Visit ([id number]) [facility] Start: 12-18-2019 [address] D[address] BONE D[address] [facility] Start: 12-18-2019 Bone Density Screening Bone Density Screening [facility] Start: 12-18-2019 Pneumococcal vaccination Pneumococcal Vaccine(s) (65+ yrs) (1 of 1 - PPSV23) [facility] Start: 12-18-2019 [facility] osteoporosis [facility] Start: 2004 Measurement of occult blood in single stool specimen FIT [facility] Start: 2004 Screening for malignant neoplasm of [facility] Start: 2004 Screening for malignant neoplasm of colon CRC Screening [facility] Start: 2004 SHINGRIX VACCINE (1 of 2) SHINGRIX VACCINE (1 of 2) [facility] Start: 2004 Varicella-zoster vaccine (product) Shingles (RZV) Vaccine (1 of 2) [facility] Start: 12-18-1999 Cholesterol [Mass/volume] in Serum or Plasma Cholesterol [facility] Start: 12-18-1999 COLOGUARD (FIT-DNA) COLOGUARD (FIT-DNA) [facility] Start: 12-18-[address] [facility] Start: 12-18-1999 COLORECTAL CANCER SCREENING COLORECTAL CANCER SCREENING [facility] Start: 12-18-[address]HY [facility] Start: 12-18-1999 DIABETES SCREEN DIABETES SCREEN [facility] Start: 12-18-1999 Diabetes Screening Diabetes Screening [facility] Start: 12-18-1999 FECAL OCCULT BLOOD FECAL OCCULT BLOOD [facility] Start: 12-18-1999 Lipid 1996 panel - Serum or Plasma Lipid Screening [facility] Start: 12-18-1999 LIPID SCREEN LIPID SCREEN [facility] Start: 12-18-1999 Screening for malignant neoplasm of colon [facility] Start: 12-18-[address] [facility] Start: [address] [facility] Start: 1994 Screening for malignant neoplasm of breast Mammography [facility] Start: [address] [facility] Start: 1972 Hepatitis C screening Hepatitis C Antibody [facility] Start: 1972 HEPATITIS C SCREENING HEPATITIS C SCREENING [facility] Start: 1972 Tetanus + diphtheria + acellular pertussis vaccine (product) Tdap Booster [facility] Start: 1960 Pneumococcal vaccination Pneumococcal Vaccine(s) (65+ yrs) (1 - PCV) [facility] Start: 1960 Pneumococcal Vaccine: 65+ (1 - PCV) Pneumococcal Vaccine: 65+ (1 - PCV) [facility] Start: 1960 PNEUMOCOCCAL: 65+ (1 - PCV) PNEUMOCOCCAL: 65+ (1 - PCV) [facility] Start: 1954 Screening for malignant neoplasm of colon Colonoscopy [facility] Immunizations Immunization Date Immunization Notes Care Provider Fa cili 08-09-2021 Moderna Monovalent ( 12+ yrs) COVID-19 vaccine, mRNA, spike protein, LNP, PF, 100 mcg/0.5 mL (VHO=303) Tien Mora MD Work Phone: [facility] 11-23-2020 Moderna SARS-COV-2 (COVID-19) vaccine, mRNA, spike protein, LNP, preservative free, 100 mcg or 50 mcg dose (OLX=313) Tien Mora MD Work Phone: [facility] 10-26-2020 Moderna SARS-COV-2 (COVID-19) vaccine, mRNA, spike protein, LNP, preservative free, 100 mcg or 50 mcg dose (NND=805) Tien Mora MD Work Phone: [facility] 07-05-2020 Influenza, injectabl e, high-dose seasonal, quadrivalent, 0.7 mL, preservative free (OXB=943) Tien Mora MD Work Phone: [facility] 07-05-2020 influenza virus vacc ine, unspecified formulation Tien Mora MD Work Phone: [facility] 08-08-2019 Influenza, injectabl e, Madin Kinsey Canine Kidney, quadrivalent with preservative Tien Mora MD Work Phone: [facility] Payers Date Payer Category Payer [facility] [id number] 2019 Medicare [id number] 2019 Medicare [id number] 2019 Unknown [id number] 1954 Unknown [id number] Social History Date Type Detail Facility Start: 03-30-2018 End: 03-09-2023 Tobacco smoking status LAIS Smokes tobacco daily [facility] History [facility] tobacco use [facility] Start: 03-30-2018 End: 07-11-2023 Cigarettes smoked current (pack per day) - Reported 1 [facility] Start: 03-30-2018 End: 03-09-2023 Tobacco use and exposure Smokeless tobacco non-user [facility] Start: 1955 Sex Assigned At Not on file [facility] Start: 07-11-2023 Gender identity Not on file [facility] Clinical Notes 12-24-2021 to 07-11-2023 Jose Ingram APRN.DIRECTOR OF AUDIOLOGY - 07/11/2023 11:10 AM EDTTelephone Encounter - Tien Mora MD - 05/06/2023 4:53 PM EDTTelephone Encounter - Tien Charlton MD - 05/06/2023 4:53 PM EDT Note Date & Type Note Facility 07-11-2023 Note HNO ID: [id number] Author: Jose Ingram APRN.DIRECTOR OF AUDIOLOGY Service: ? Author Type: Nurse Practitioner Type: Progress Notes Filed: 07/11/2023 11:42 AM Note Text: Subjective HPI Nontoxic-appearing female presents urgent care chief plaint right ear pain sore throat. Duration of symptom 1 day. Associated symptoms listed above. Most prominent symptom today is ear pain. States that she does have some nasal drainage is present for a few days prior. History of ear infections. Did have ear surgery for tinnitus in the past. 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 Presents today for evaluation. Did use Tylenol this is helped some. No otorrhea or loss of hearing or ear trauma. Denies any fever body aches chills productive cough chest pain shortness of breath pleuritic pain hemoptysis nausea vomiting abdominal pain change in bowel or bladder habits. Past medical history prescription medication use and allergies reviewed. .Patient presents with: Ear Pain: R ear pain, ST, chest congestion x last night History reviewed. No pertinent past medical history. History reviewed. No pertinent surgical history. ALLERGIES Erythromycin and Shellfish Derived MEDICATIONS losartan-hydroCHLOROthiazide (HYZAAR) 100-12.5 mg per tablet metoprolol tartrate, short acting, (LOPRESSOR) 25 mg tablet Take 12.5 mg by mouth. amLODIPine (NORVASC) 5 mg tablet Take 5 mg by mouth. omeprazole (PRILOSEC) 20 mg capsule Take 40 mg by mouth. History reviewed. No pertinent family history. Social History Tobacco Use Smoking status: Every Day Types: Cigarettes Smokeless tobacco: Never BP 125/80 Pulse 85 Temp 36.9 ?C (98.4 ?F) Resp 18 Wt 83.9 kg (185 lb) SpO2 98% Review of Systems Constitutional: Negative for chills, fever and malaise/fatigue. HENT: Positive for congestion and ear pain. Negative for ear discharge, sinus pain and sore throat. Eyes: Negative for blurred vision, pain, discharge and redness. Respiratory: Negative for cough, hemoptysis, sputum production, shortness of breath, wheezing and stridor. Cardiovascular: Negative for chest pain. Gastrointestinal: Negative for abdominal pain, diarrhea, nausea and vomiting. Musculoskeletal: Negative for myalgias. Skin: Negative for itching and rash. Neurological: Negative for dizziness and headaches. Objective Physical Exam Constitutional: General: She is not in acute distress. Appearance: She is not diaphoretic. HENT: Head: Normocephalic. Jaw: No trismus, tenderness, swelling or pain on movement. Right Ear: Ear canal and external ear normal. Decreased hearing noted. No mastoid tenderness. Tympanic membrane is erythematous and bulging. Left Ear: Hearing, tympanic membrane, ear canal and external ear normal. No mastoid tenderness. Nose: Congestion present. Mouth/Throat: Mouth: Mucous membranes are moist. Pharynx: Oropharynx is clear. Uvula midline. No pharyngeal swelling, oropharyngeal exudate, posterior oropharyngeal erythema or uvula swelling. Eyes: Conjunctiva/sclera: Conjunctivae normal. Pupils: Pupils are equal, round, and reactive to light. Cardiovascular: Rate and Rhythm: Normal rate and regular rhythm. Heart sounds: Normal heart sounds. Pulmonary: Effort: Pulmonary effort is normal. No tachypnea, accessory muscle usage or respiratory distress. Breath sounds: Normal breath sounds. No stridor. No wheezing, rhonchi or rales. Abdominal: General: There is no distension. Palpations: Abdomen is soft. Tenderness: There is no abdominal tenderness. There is no guarding or rebound. Musculoskeletal: Cervical back: Normal range of motion and neck supple. No edema, erythema, rigidity or tenderness. No pain with movement. Normal range of motion. Lymphadenopathy: Cervical: No cervical adenopathy. Skin: General: Skin is warm and dry. Neurological: Mental Status: She is alert and oriented to person, place, and time. ASSESSMENT/PLAN: 1. Acute otitis media, right - ICD9: 382.9, ICD10: H66.91 Diagnosed with otitis media right ear. Denies any liver or kidney disease. Placed on amoxicillin. Patient was educated on supportive therapies. Patient will follow up with primary care provider 3 to 5 days reevaluation. Patient was instructed to immediately proceed to emergency room for any new, worsening, or symptoms lasting longer than anticipated. The patient's clinical presentation is otherwise unremarkable at this time. Based on exam and clinical finding, the patient is stable for discharge. Plan of care was discussed with patient. Patient verbalizes understanding and agrees to plan of care. This note was generated using [employer] software. It may contain errors in wording, punctuation, or spelling. Jose Ingram APRN.[facility] 07-11-2023 History of Present illness Narrative Subjective HPI Nontoxic-appearing female presents urgent care chief plaint right ear pain sore throat. Duration of symptom 1 day. Associated symptoms listed above. Most prominent symptom today is ear pain. States that she does have some nasal drainage is present for a few days prior. History of ear infections. Did have ear surgery for tinnitus in the past. 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 Presents today for evaluation. Did use Tylenol this is helped some. No otorrhea or loss of hearing or ear trauma. Denies any fever body aches chills productive cough chest pain shortness of breath pleuritic pain hemoptysis nausea vomiting abdominal pain change in bowel or bladder habits. Past medical history prescription medication use and allergies reviewed. .Patient presents with: Ear Pain: R ear pain, ST, chest congestion x last night History reviewed. No pertinent past medical history. History reviewed. No pertinent surgical history. ALLERGIES Erythromycin and Shellfish Derived MEDICATIONS losartan-hydroCHLOROthiazide (HYZAAR) 100-12.5 mg per tablet metoprolol tartrate, short acting, (LOPRESSOR) 25 mg tablet Take 12.5 mg by mouth. amLODIPine (NORVASC) 5 mg tablet Take 5 mg by mouth. omeprazole (PRILOSEC) 20 mg capsule Take 40 mg by mouth. History reviewed. No pertinent family history. Social History Tobacco Use Smoking status: Every Day Types: Cigarettes Smokeless tobacco: Never BP 125/80 Pulse 85 Temp 36.9 C (98.4 F) Resp 18 Wt 83.9 kg (185 lb) SpO2 98% Review of Systems Constitutional: Negative for chills, fever and malaise/fatigue. HENT: Positive for congestion and ear pain. Negative for ear discharge, sinus pain and sore throat. Eyes: Negative for blurred vision, pain, discharge and redness. Respiratory: Negative for cough, hemoptysis, sputum production, shortness of breath, wheezing and stridor. Cardiovascular: Negative for chest pain. Gastrointestinal: Negative for abdominal pain, diarrhea, nausea and vomiting. Musculoskeletal: Negative for myalgias. Skin: Negative for itching and rash. Neurological: Negative for dizziness and headaches. Objective Physical Exam Constitutional: General: She is not in acute distress. Appearance: She is not diaphoretic. HENT: Head: Normocephalic. Jaw: No trismus, tenderness, swelling or pain on movement. Right Ear: Ear canal and external ear normal. Decreased hearing noted. No mastoid tenderness. Tympanic membrane is erythematous and bulging. Left Ear: Hearing, tympanic membrane, ear canal and external ear normal. No mastoid tenderness. Nose: Congestion present. Mouth/Throat: Mouth: Mucous membranes are moist. Pharynx: Oropharynx is clear. Uvula midline. No pharyngeal swelling, oropharyngeal exudate, posterior oropharyngeal erythema or uvula swelling. Eyes: Conjunctiva/sclera: Conjunctivae normal. Pupils: Pupils are equal, round, and reactive to light. Cardiovascular: Rate and Rhythm: Normal rate and regular rhythm. Heart sounds: Normal heart sounds. Pulmonary: Effort: Pulmonary effort is normal. No tachypnea, accessory muscle usage or respiratory distress. Breath sounds: Normal breath sounds. No stridor. No wheezing, rhonchi or rales. Abdominal: General: There is no distension. Palpations: Abdomen is soft. Tenderness: There is no abdominal tenderness. There is no guarding or rebound. Musculoskeletal: Cervical back: Normal range of motion and neck supple. No edema, erythema, rigidity or tenderness. No pain with movement. Normal range of motion. Lymphadenopathy: Cervical: No cervical adenopathy. Skin: General: Skin is warm and dry. Neurological: Mental Status: She is alert and oriented to person, place, and time. ASSESSMENT/PLAN: 1. Acute otitis media, right - ICD9: 382.9, ICD10: H66.91 Diagnosed with otitis media right ear. Denies any liver or kidney disease. Placed on amoxicillin. Patient was educated on supportive therapies. Patient will follow up with primary care provider 3 to 5 days reevaluation. Patient was instructed to immediately proceed to emergency room for any new, worsening, or symptoms lasting longer than anticipated. The patient's clinical presentation is otherwise unremarkable at this time. Based on exam and clinical finding, the patient is stable for discharge. Plan of care was discussed with patient. Patient verbalizes understanding and agrees to plan of care. This note was generated using [employer] software. It may contain errors in wording, punctuation, or spelling. Jose Ingram APRN.JUAN CARLOS documented in this encounter [facility] 05-06-2023 Telephone encounter Note Dacia please teach elizabeth dial how to make a refill request with correct pharmacy Thank you Tien [facility] 05-06-2023 Miscellaneous Notes Dacia please teach elizabeth dial how to make a refill request with correct pharmacy Thank you Tien Patient would like this medication sent to [facility]. clobetasol (TEMOVATE) 0.05 % ointment [facility] [address] [place] [address] Completed Tien Mora MD documented in this encounter [facility] 05-06-2023 Telephone encounter Note Patient would like this medication sent to [facility]. clobetasol (TEMOVATE) 0.05 % ointment [facility] [address] [place] [address] Completed Tien Mora MD [facility] 05-05-2023 Telephone encounter Note Escribed clobetasol oint bid avoid face amript groin under breasts In past had augmented betamethasone Tien Mora MD [facility] 05-05-2023 Note Addended by: TIEN TOURE on: 05/05/2023 05:36 PM Modules accepted: Orders [facility] 05-05-2023 Note Addended by: TIEN TOURE on: 05/05/2023 05:36 PM Modules accepted: Orders [facility] 05-05-2023 Miscellaneous Notes Addended by: TIEN MORA on: 05/05/2023 05:36 PM Modules accepted: Orders Both elbows are dry, crusty, sore and dark. Would like something to help with it. Needs a refill of what you gave her in the past but doesn't remember what the medicine was called. Please advise documented in this encounter [facility] 05-05-2023 Miscellaneous Notes Escribed clobetasol oint bid avoid face amript groin under breasts In past had augmented betamethasone Tien Mora MD Addended by: TIEN MORA on: 05/05/2023 05:36 PM Modules accepted: Orders Both elbows are dry, crusty, sore and dark. Would like something to help with it. Needs a refill of what you gave her in the past but doesn't remember what the medicine was called. Please advise documented in this encounter [facility] 05-01-2023 Telephone encounter Note Both elbows are dry, crusty, sore and dark. Would like something to help with it. Needs a refill of what you gave her in the past but doesn't remember what the medicine was called. Please advise [facility] 05-01-2023 Miscellaneous Notes Both elbows are dry, crusty, sore and dark. Would like something to help with it. Needs a refill of what you gave her in the past but doesn't remember what the medicine was called. Please advise documented in this encounter [facility] 03-09-2023 Note HNO ID: [id number] Author: Regine Murillo APRN.DIRECTOR OF AUDIOLOGY Service: ? Author Type: Nurse Practitioner Type: Progress Notes Filed: 03/09/2023 10:46 AM Note Text: Subjective The history is provided by the patient. No investigator welfare was used. HPI Monica Espinosa is a 67 year old female who presents today for CC of bilateral eye drainage and redness. She states vision is foggy from drainage, no pain in eye or shooting pain. She has not used any treatment. She denies any fever, chills, body aches, headache, cough, congestion, runny nose, nausea, vomiting or diarrhea. BP 132/80 Pulse 66 Temp 36.7 ?C (98.1 ?F) Resp 18 Wt 82.6 kg (182 lb) SpO2 95% Social History Tobacco Use Smoking status: Every Day Types: Cigarettes Smokeless tobacco: Never No past medical history on file. I have confirmed and edited as necessary, the [facility] Review of Systems Constitutional: Negative for chills, fever and malaise/fatigue. HENT: Negative for congestion, ear pain, sinus pain and sore throat. Eyes: Positive for discharge and redness. Negative for blurred vision, double vision, photophobia and pain. Respiratory: Negative for cough, sputum production, shortness of breath and wheezing. Cardiovascular: Negative for chest pain. Gastrointestinal: Negative for abdominal pain, diarrhea, nausea and vomiting. Musculoskeletal: Negative for myalgias. Neurological: Negative for headaches. Objective Physical Exam Vitals and nursing note reviewed. HENT: Head: Normocephalic and atraumatic. Right Ear: Tympanic membrane, ear canal and external ear normal. Left Ear: Tympanic membrane, ear canal and external ear normal. Nose: No mucosal edema, congestion or rhinorrhea. Right Sinus: No maxillary sinus tenderness or frontal sinus tenderness. Left Sinus: No maxillary sinus tenderness or frontal sinus tenderness. Mouth/Throat: Pharynx: Uvula midline. No oropharyngeal exudate or posterior oropharyngeal erythema. Eyes: General: Lids are normal. Lids are everted, no foreign bodies appreciated. Right eye: Discharge present. No foreign body. Left eye: Discharge present.No foreign body. Extraocular Movements: Extraocular movements intact. Conjunctiva/sclera: Conjunctivae normal. Pupils: Pupils are equal, round, and reactive to light. Funduscopic exam: Right eye: Red reflex present. Left eye: Red reflex present. Cardiovascular: Rate and Rhythm: Normal rate and regular rhythm. Heart sounds: Normal heart sounds. Pulmonary: Effort: Pulmonary effort is normal. Breath sounds: Normal breath sounds. Lymphadenopathy: Head: Right side of head: No submental, submandibular or tonsillar adenopathy. Left side of head: No submental, submandibular or tonsillar adenopathy. Cervical: No cervical adenopathy. Skin: General: Skin is warm and dry. Neurological: Mental Status: She is alert. Psychiatric: Mood and Affect: Affect normal. ASSESSMENT/PLAN: 1. Acute conjunctivitis of both eyes, unspecified acute conjunctivitis type - ICD9: 372.00, ICD10: H10.33 Bacterial - see medication orders - course and contagiousness issues discussed, including hand washing. - Instructed to call if high fever, development of periorbital redness or swelling, eye pain, visual changes, concerns or if symptoms persist. Diagnosis and treatment plan were discussed and questions were answered to the patient's satisfaction. Pt acknowledged understanding of concepts and follow up plan. Specific signs and symptoms that would indicate the need for higher level of care were discussed in detail warranting prompt ER evaluation. Regine Murillo APRN.[facility] 03-09-2023 History of Present illness Narrative Subjective The history is provided by the patient. No investigator welfare was used. HPI Monica Espinosa is a 67 year old female who presents today for CC of bilateral eye drainage and redness. She states vision is foggy from drainage, no pain in eye or shooting pain. She has not used any treatment. She denies any fever, chills, body aches, headache, cough, congestion, runny nose, nausea, vomiting or diarrhea. BP 132/80 Pulse 66 Temp 36.7 C (98.1 F) Resp 18 Wt 82.6 kg (182 lb) SpO2 95% Social History Tobacco Use Smoking status: Every Day Types: Cigarettes Smokeless tobacco: Never No past medical history on file. I have confirmed and edited as necessary, the [facility] Review of Systems Constitutional: Negative for chills, fever and malaise/fatigue. HENT: Negative for congestion, ear pain, sinus pain and sore throat. Eyes: Positive for discharge and redness. Negative for blurred vision, double vision, photophobia and pain. Respiratory: Negative for cough, sputum production, shortness of breath and wheezing. Cardiovascular: Negative for chest pain. Gastrointestinal: Negative for abdominal pain, diarrhea, nausea and vomiting. Musculoskeletal: Negative for myalgias. Neurological: Negative for headaches. Objective Physical Exam Vitals and nursing note reviewed. HENT: Head: Normocephalic and atraumatic. Right Ear: Tympanic membrane, ear canal and external ear normal. Left Ear: Tympanic membrane, ear canal and external ear normal. Nose: No mucosal edema, congestion or rhinorrhea. Right Sinus: No maxillary sinus tenderness or frontal sinus tenderness. Left Sinus: No maxillary sinus tenderness or frontal sinus tenderness. Mouth/Throat: Pharynx: Uvula midline. No oropharyngeal exudate or posterior oropharyngeal erythema. Eyes: General: Lids are normal. Lids are everted, no foreign bodies appreciated. Right eye: Discharge present. No foreign body. Left eye: Discharge present.No foreign body. Extraocular Movements: Extraocular movements intact. Conjunctiva/sclera: Conjunctivae normal. Pupils: Pupils are equal, round, and reactive to light. Funduscopic exam: Right eye: Red reflex present. Left eye: Red reflex present. Cardiovascular: Rate and Rhythm: Normal rate and regular rhythm. Heart sounds: Normal heart sounds. Pulmonary: Effort: Pulmonary effort is normal. Breath sounds: Normal breath sounds. Lymphadenopathy: Head: Right side of head: No submental, submandibular or tonsillar adenopathy. Left side of head: No submental, submandibular or tonsillar adenopathy. Cervical: No cervical adenopathy. Skin: General: Skin is warm and dry. Neurological: Mental Status: She is alert. Psychiatric: Mood and Affect: Affect normal. ASSESSMENT/PLAN: 1. Acute conjunctivitis of both eyes, unspecified acute conjunctivitis type - ICD9: 372.00, ICD10: H10.33 Bacterial - see medication orders - course and contagiousness issues discussed, including hand washing. - Instructed to call if high fever, development of periorbital redness or swelling, eye pain, visual changes, concerns or if symptoms persist. Diagnosis and treatment plan were discussed and questions were answered to the patient's satisfaction. Pt acknowledged understanding of concepts and follow up plan. Specific signs and symptoms that would indicate the need for higher level of care were discussed in detail warranting prompt ER evaluation. Regine Murillo APRN.JUAN CARLOS documented in this encounter [facility] 06-17-2022 Instructions Ambrosio Maza - 06/17/2022 11:05 AM EDT For your surgical wound, 1. Clean the area twice daily with soapy water. Showering can count as one cleaning. 2. After cleansing, apply VASELINE ointment and bandaid to the wound. 3. Continue this wound care twice daily till the sutures are removed or if there were no sutures placed, till healed (when the wound is no longer open). If you do not use a bandaid, apply the Vaseline with a Q-tip 4 times daily to keep it moist and the wound well heal faster. 4. . If the skin around the wound becomes red, swollen, painful, or has a green discharge you may have an infected wound. In this case call the office IMMEDIATELY. 5. [place], red and yellow discharge from your wound is normal. 6. For open wounds, expect a red rim around the wound as it heals. 7. For wounds with sutures, expect red bumpiness along the sutures. 8. Wounds may bleed. If bleeding occurs, apply direct pressure to the wound with a clean dry cloth for 15 minutes by the clock. If bleeding does not stop then call the numbers listed below. 9. For pain, apply a heating pad if sutures were placed or an ice pack if the biopsy was left open. If an extensive surgery was performed, apply ice the first day and then a heating pad thereafter for pain. 10. If sutures fall out, continue the above wound care instructions and the wound will close on its own. If you would like to have the sutures replaced, its best done within 24 hours and please call the numbers below. 11. If there are any questions or problems, call the clinic for urgent questions/concerns [phone] After 5PM and if it's an emergency, please go to the emergency room documented in this encounter [facility] 06-17-2022 History of Present illness Narrative HISTORY OF PRESENT ILLNESS Visit Date/Time: 06/17/2022 8:29 AM Patient: Monica Espinosa is a 66 year old White female Reason for Visit: Removal of ACs, Last seen on 02/27/2022 by myself A/P from 02/27/2022 by myself 1. Seborrheic keratosis with few ACs Pt aware removal is not medically necessary and not covered by insurance LN2 x 2 cycles Vaseline BID Wound care instructions discussed and given Pt here today for removal of ACs -Pt mycharted me 03/2022 that left shoulder skin tags still present -Will treat with electridessication and 1 % lido/epi -Lesions did not go away with LN treatment though patient feels that some are smaller ------- PHYSICAL EXAM --------- Pt sitting in NAD -pedunculated stuck on papules left shoulder --- ASSESSMENT & PLAN ----- 1. Seborrheic keratoses with few ACs - Left shoulder Pt confirmed location and amenable to electrodesiccation Cleaned area in sterile fashion Anesthesia: 1% lidocaine with epinephrine Procedure : Electrodesiccation Complications:none Pt tolerated procedure: Vaseline applied and wound covered with gauze and taped to blouse Wound care instructions given Follow up yearly ----- SCRIBE ATTESTATION ---- 06/17/2022, 8:29 AM. This note is prepared by Ambrosio Maza acting as Scribe for Tien Mora MD. The scribe's documentation has been prepared under my direction and personally reviewed by me in its entirety. I confirm that the note above accurately reflects all work, treatment, procedures, and medical decision making performed by me, Tien Mora MD. Vitals not obtained per provider's instructions. Patient was identified by name and date of . Justine Lopez documented in this encounter [facility] 02-27-2022 History of Present illness Narrative HISTORY OF PRESENT ILLNESS Visit Date/Time: 02/27/2022 2:09 PM Patient: Monica Espinosa is a 66 year old White female Reason for Visit: Cosmetic removal of skin tags and SKs, Last seen on 01/07/2022 by myself A/P from 01/07/2022 by myself 1. R/o SK right inferior buttocks lat to vulva -s/p Ln2 12/24/2021 -in pt s/p total hysterectomy, still healing -Encouraged Vaseline every time she uses the bathroom. -Recheck in one month when healed Pt here today for Cosmetic removal of skin tags and SKs -Pt c/o skin tags on the shoulders -She understands that this is a cosmetic prepaid visit ------- PHYSICAL EXAM --------- Pt sitting in NAD -Pedunculated and stuck on papules L>R shoulder --- ASSESSMENT & PLAN ----- 1. Seborrheic keratosis with few ACs Pt aware removal is not medically necessary and not covered by insurance LN2 x 2 cycles Vaseline BID Wound care instructions discussed and given Follow up PRN ----- SCRIBE ATTESTATION ---- 02/27/2022, 2:09 PM. This note is prepared by Ambrosio Maza acting as Scribe for Tien Mora MD. The scribe's documentation has been prepared under my direction and personally reviewed by me in its entirety. I confirm that the note above accurately reflects all work, treatment, procedures, and medical decision making performed by me, Tien Mora MD. documented in this encounter [facility] 02-27-2022 Instructions Tien Mora MD - 02/27/2022 1:56 PM EDT HOW TO SEND ME A PICTURE VIA [employer] 1. Take a photo on your cell phone 2. From your cell phone, go to the internet and go to [email or web address] 3. Log in to your [employer] account 4. Select Send a message to your doctor's office 5. Select Tien Mora MD from the Choose a recipient drop down menu 6. Choose a subject and add a message 7. Click on the blue BROWSE button next to attach an image 8. Choose photo gallery OR documents to find the photo 9. Select Send WHAT TO EXPECT FOLLOWING LIQUID NITROGEN TREATMENT (CRYOSURGERY) AND HOW TO TAKE CARE OF THE TREAMENT SITE 1) Expect frozen area to sting on and off, turn red and swell up, eventually causing a blister 2) Once the blister pops, apply Vaseline twice a day with band-aid or 3-4 times day without band-aid 3.) If a blister does not form, you will eventually see a scab. Apply Vaseline as above. 4) When healed, there may be an increase or loss of pigmentation with or without normalization. 5) When areas around the eyes are treated, swelling of the eyelids is quite common and may last for several days. 6) When areas on the presybeterian or scalp are treated, a headache may result. Occasionally, these occur several days following treatment. In most cases, Tylenol tablets are sufficient treatment. 7) Infection following cryosurgery is rare. However if the drainage looks like green pus or you are worried about the treatment site, please do not hesitate to call our office for urgent questions/concerns [phone]. After 5PM and if it's an emergency, please go to the emergency room. documented in this encounter [facility] 02-27-2022 History of Present illness Narrative Patient was identified by name and date of . 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 R/o SK right inferior buttocks lat to vulva -s/p Ln2 12/24/2021 -in pt s/p total hysterectomy, still healing -Encouraged Vaseline every time she uses the bathroom. 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 - Pt c/o skin tags on the shoulders -She understands that this is a cosmetic prepaid visit -Pt also notes a dark lesion on the lip that is sore ------- PHYSICAL EXAM --------- Pt sitting in NAD -Dusky red macule right inferior buttocks -Pedunculated and stuck on papules L>R shoulder -Left lower lip 2 purpleish dome shaped papules under the skin with overlying scale that extends medial to the papules on the lower lip --- ASSESSMENT & PLAN ----- 1. SK right inferior buttocks lat to vulva -s/p Ln2 12/24/2021 -resolved -Reassured patient 2. AC's Pt understand removal cosmetic and not covered by insurance. Willing to pay to have removed. 3. R/o AK overlying angiomas With h/o tenderness in past - Efudex 5% cream BID, apply 4 weeks. Stop if sore, oozy or scabby. -Pt to message me in a month with photos ----- SCRIBE ATTESTATION ---- 02/27/2022, 12:50 PM. This note is prepared by Ambrosio Maza acting as Scribe for Tien Mora MD. The scribe's documentation has been prepared under my direction and personally reviewed by me in its entirety. I confirm that the note above accurately reflects all work, treatment, procedures, and medical decision making performed by me, Tien Mora MD. documented in this encounter [facility] 12-24-2021 Instructions Ambrosio Maza - 12/24/2021 1:31 PM EDT Follow up on 01/07/2022 @ 10:45 AM WHAT TO EXPECT FOLLOWING LIQUID NITROGEN TREATMENT (CRYOSURGERY) AND HOW TO TAKE CARE OF THE TREAMENT SITE 1) Expect frozen area to sting on and off, turn red and swell up, eventually causing a blister 2) Once the blister pops, apply Vaseline twice a day with band-aid or 3-4 times day without band-aid 3.) If a blister does not form, you will eventually see a scab. Apply Vaseline as above. 4) When healed, there may be an increase or loss of pigmentation with or without normalization. 5) When areas around the eyes are treated, swelling of the eyelids is quite common and may last for several days. 6) When areas on the presybeterian or scalp are treated, a headache may result. Occasionally, these occur several days following treatment. In most cases, Tylenol tablets are sufficient treatment. 7) Infection following cryosurgery is rare. However if the drainage looks like green pus or you are worried about the treatment site, please do not hesitate to call our office for urgent questions/concerns . After 5PM and if it's an emergency, please go to the emergency room. documented in this encounter [facility] 12-24-2021 History of Present illness Narrative HISTORY OF PRESENT ILLNESS Visit Date/Time: 12/24/2021 10:26 AM Patient: Monica Espinosa is a 66 year old White female Reason for Visit: Rash, Last seen on 01/24/2020 by myself A/P from 01/24/2020 by myself 1. Seborrheic dermatitis - Start Hydrocortisone 2.5% cream to affected areas BID prn - Refilled Ketoconazole 2% shampoo to face daily 2. 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 Augmented betamethasone oint bid aovid face armpit groin Pt here today for Rash of the genital area and perianal region -s/p excision of cyst of the left occipital scalp on 05/25/2020 -Rash resolved after present for 6 months -Began in the genital area and perianal after a bad case of diarrhea -Rash then spread to lower stomach, lower back, and thighs -Cleared with no itch within the last month -Denies h/o skin cancer -Web Press Operator pointed out brown spot in the genital area in April that needs examination ------- PHYSICAL EXAM --------- Physical Exam: Patient sitting in no acute distress. Scalp: Examined Hair: Examined Eyelids/conjunctiva: Examined Ears: Examined Lips: Examined Face: Examined Neck: Examined Chest/Breast/axilla:: Examined Abdomen: Examined Back: Examined Lt Arm: Examined Rt Arm: Examined Lt dorsal hand: Examined Rt. dorsal hand: Examined Palms: Examined Fingers: Examined Axilla: Examined Genitalia: Examined Buttocks: Examined Perianal: Examined Lt. Leg: Examined Rt Leg: Examined Lt. dorsal Foot: Examined Rt. dorsal Foot: Examined Soles: Examined Toes: Examined Pertinent findings include: -hyperpigmented macules and papules face trunk and extremities -Pedunculated papules both shoulders -Stuck on papules trunk and extremities -Pinpoint hemorrhagic crusted papules both lower legs -2 adjacent Non homogeneous hyperpigmented stuck on papules spanning 8 mm right inf buttocks area lat to vuvla -Xerosis of legs -L>R elbow dusky pink scaly lichenified plaque --- ASSESSMENT & PLAN ----- 1. R/o SK right inferior buttocks lat tovuvla Verbal consent obtained and timeout taken to confirm correct patient, correct procedure, correct procedure site location. - Ln2 x 3 cycles - Vaseline BID to popped blister or scab - Wound care instructions given 2. H/o rash in buttocks and abdomen -Resolved -Encouraged pt to message me through PerSay if needs to be evaluated urgently 3. Nevi/ephelides/Solar lentigines Reassured pt. None suspicious 4. Seborrheic Keratoses (SK) Reassured pt. No treatment. If changes to call for evaluation. AAD pamphlet given 5. Acrocordons (AC) Shoulders Reassured pt. No treatment. 6. Xerosis of legs -encouraged Cerave or Cetaphil cream BID Follow up 2 weeks ----- SCRIBE ATTESTATION ---- 12/24/2021, 10:26 AM. This note is prepared by Ambrosio Maza acting as Scribe for Tien Mora MD. The scribe's documentation has been prepared under my direction and personally reviewed by me in its entirety. I confirm that the note above accurately reflects all work, treatment, procedures, and medical decision making performed by me, Tien Mora MD. 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 Acute otitis media, right- Primary Unspecified otitis media documented in this encounter [facility] Summary Purpose Family History No Family History Records FoundNo Family History Records Found Advance Directives No Advanced Directives Records FoundNo Advanced Directives Records Found Additional Source Comments Reason for Visit (unrecogniz ed section and content) Reason Comments f/u biopsy Reason Comments skin tags Reason Comments Eye Problem Bilateral eyes, woke up this morning with it Reason Onset Date Comments Sore crusty dark elbows 05/01/2023 Reason Onset Date Comments change of location for medication 05/06/2023 Reason Comments Ear Pain R ear pain, ST, ches t congestion x last night Care Teams (unrecognized sec tion and content) Load Test Mechanic Relationship Specialty Start Date End Date Tien Mora MD [address] [place] [id number] Physician Dermatology 07/11/20 Sorin Davis MD [address] [place] [address] [place] [address] Physician Dermatology 07/11/20 Load Test Mechanic Relationship Specialty Start Date End Date Tien Mora MD [address] [place] [id number] Physician Dermatology 07/11/20 Sorin Davis MD [address] [place] [address] [place] [address] Physician Dermatology 07/11/20 Load Test Mechanic Relationship Specialty Start Date End Date Tien Mora MD [address] [place] [id number] Physician Dermatology 07/11/20 Sorin Davis MD [address] [place] [address] [place] [address] Physician Dermatology 07/11/20 Load Test Mechanic Relationship Specialty Start Date End Date Tien Mora MD [address] [place] [id number] Physician Dermatology 07/11/20 Sorin Davis MD [address] [place] [address] [place] [address] Physician Dermatology 07/11/20 Load Test Mechanic Relationship Specialty Start Date End Date Brenda Harris DO PCP - General Family Medicine 03/13/16 Load Test Mechanic Relationship Specialty Start Date End Date Tien Mora MD [address] [place] [id number] Physician Dermatology 07/11/20 Sorin Davis MD [address] [facility] [place] [address] Physician Dermatology 07/11/20 Load Test Mechanic Relationship Specialty Start Date End Date Tien Mora MD [address] [place] [address] Physician Dermatology 07/11/20 Sorin Davis MD [address] [facility] [place] [address] Physician Dermatology 07/11/20 Load Test Mechanic Relationship Specialty Start Date End Date Tien Mora MD [address] [place] [address] Physician Dermatology 07/11/20 Sorin Davis MD [address] [facility] [place] [address] Physician Dermatology 07/11/20 Load Test Mechanic Relationship Specialty Start Date End Date Steven Brenda OliveraDO PCP - General Family Medicine 03/13/16 Source Comments (unrecognize d section and content) In the event this informatio n is protected by the Federal Confidentiality of Alcohol and Drug Abuse Patient Records regulations: The Federal rules restrict any use of the information to criminally investigate or prosecute any alcohol or drug abuse patient.[facility] the event this information is protected by the Federal Confidentiality of Alcohol and Drug Abuse Patient Records regulations: The Federal rules restrict any use of the information to criminally investigate or prosecute any alcohol or drug abuse patient.[facility] INFORMATION SOURCE (unrecogn ized section and content) DATE CREATED AUTHOR AUTHOR'S ORGANIZ ATION 07/14/2023 [facility] FOR RECORDS PERTAINING TO PATIENTS WHO ARE OR HAVE BEEN ENROLLED IN A CHEMICAL DEPENDENCY/SUBSTANCEABUSE PROGRAM, SOME INFORMATION MAY BE OMITTED. This clinical summary was aggregated from multiple sources. Caution should be exercised in using it in the provision of clinical care. This summary normalizes information from multiple sources, and as a consequence, information in this document may materially change the coding, format and clinical context of patient data. In addition, data may be omitted in some cases. CLINICAL DECISIONS SHOULD BE BASED ON THE PRIMARY CLINICAL RECORDS. [facility] [employer] [facility]. provides no warranty or guarantee of the accuracy or completeness of information in this document.
[2023-12-10 12:27] LABS: Absolute Lymphocyte Count 2.61 X10^3/uL (0.83-4.51); Absolute Neutrophil Count 6.6 X10^3/uL (2.0-7.7); Basophil# 0.09 X10^3/uL; Basophil% 0.9 % (0-1); Eosinophil# 0.23 X10^3/uL; Eosinophils% 2.2 % (0-5); Hematocrit 45.2 % (37-47); Hemoglobin 15.1 g/dL (12.0-15.0); Lymphocyte # 2.61 X10^3/ul (0.83-4.51); Lymphocyte % 25.5 % (19-41); Mean Corp Hgb Conc 33.4 g/dL (32-36); Mean Corpuscular Hgb 31.3 pg (27.0-32.0); Mean Corpuscular Volume 93.8 fL (81-99); Mean Platelet Vol. 9.6 fl (6.2-12.0); Monocyte# 0.66 X10^3/uL; Monocyte% 6.4 % (0-10); NRBC Flagged by Analyzer 0 % (0-5); Neutrophil # 6.61 X10^3/uL (2.7-7.7); Neutrophil % 64.5 % (47-70); Platelet Count 389 K/mm3 (150-450); RBC Distribution Width CV 12.3 % (11.6-14.6); RBC Distribution Width SD 42.3 fl (35.1-43.9); Red Blood Count 4.82 M/mm3 (4.2-5.4); White Blood Count 10.3 K/mm3 (4.4-11.0)
[2023-12-10 12:46] LABS: Prothrombin Time (Protime)PT. 13.3 SECONDS (11.7-14.9)
[2023-12-10 12:47] LABS: Partial Thromboplast Time 30.7 Seconds (24.1-36.2)
[2023-12-10 12:59] LABS: Vitamin B12 308 pg/mL (211-911); Vitamin D,25 Hydroxy 18.1 ng/mL
[2023-12-10 13:37] LABS: AST(SGOT) 24 U/L (15-37); Alanine Aminotransfer ALT/SGPT 29 U/L (13-56); Albumin, Serum 3.5 g/dL (3.2-5.0); Alkaline Phosphatase 92 U/L (45-117); Anion Gap 6 (5-15); BUN 8 mg/dL (7-18); BUN/Creat Ratio 10.1 RATIO (10-20); Calcium,Total 9.4 mg/dL (8.5-10.1); Chloride 104 mmol/L (98-107); Cholesterol 182 mg/dL (200); EST Glomerular Filtration Rate 76 mL/min (>60); Est Glom Filt Rate - Afr Amer 92 mL/min (>60); Globulin 3.5 g/dL (2.2-4.2); Glucose 90 mg/dL (74-106); High Density Lipoprotein 60 mg/dL; Sodium Level 138 mmol/L (136-145); Thyroid Stim Hormone (TSH) 0.78 uIU/mL (0.358-3.74); Triglycerides 74 mg/dL; Very Low Density Lipoprotein 15 mg/dL (5-40)
== END | disposition home or self-care (01) ==
LOC: BFHLAB 09:23
PROVIDERS: PCP Family Medicine; Visit Provider Family Medicine
DX: I10 Essential (primary) hypertension (principal); R53.83 Other fatigue; E55.9 Vitamin D deficiency, unspecified; R23.3 Spontaneous ecchymoses
CPT/HCPCS: 36415; 80053; 80061; 82306; 82607; 84443; 85025; 85610; 85730

== ENCOUNTER → 2023-12-25 | Outpatient (CLI) | payer MEDICARE, BC, SELFPAY | END | disposition home or self-care (01) | PROVIDERS: PCP Family Medicine; Referring Provider Family Medicine; Visit Provider Family Medicine | DX: G47.10 Hypersomnia, unspecified (principal); R06.83 Snoring; I10 Essential (primary) hypertension | CPT/HCPCS: 95806 ==

== ENCOUNTER → 2024-01-19 | Outpatient (CLI) | payer MEDICARE, BC, SELFPAY | END | disposition home or self-care (01) | LOC: SL 10:34 | PROVIDERS: PCP Family Medicine; Referring Provider Family Medicine; Visit Provider Family Medicine | DX: G47.10 Hypersomnia, unspecified (principal) | CPT/HCPCS: 95806 ==

== ENCOUNTER → 2024-09-22 | Outpatient (CLI) | payer MEDICARE, BC, SELFPAY | END | disposition home or self-care (01) | LOC: LABSPEC 15:54 | PROVIDERS: PCP Family Medicine; Referring Provider Nurse Practitioner Women's Health; Visit Provider Nurse Practitioner Women's Health | DX: N89.8 Other specified noninflammatory disorders of vagina (principal) | CPT/HCPCS: 87255 ==

== ENCOUNTER → 2024-09-30 | Outpatient (CLI) | payer MEDICARE, BC, SELFPAY | END | disposition home or self-care (01) | LOC: BWCLAB 13:37 | PROVIDERS: PCP Family Medicine; Referring Provider Nurse Practitioner Women's Health; Visit Provider Nurse Practitioner Women's Health | DX: N90.89 Other specified noninflammatory disorders of vulva and perineum (principal) | CPT/HCPCS: 36415; 86695; 86696 ==

== ENCOUNTER 2025-05-06 10:30 | Outpatient (RCR) | payer MEDICARE, BC, SELFPAY ==
--- NOTE | 2025-04-18 14:10 | HP.PTEVAL_ITS ---
Patient's Visit Information Visit Information Visit Information: MAGGI ESPINOSA is a 69 year old F referred to Physical Therapy by Dr. Jack Turner MD with a diagnosis of Spinal stenosis, lumbar region without neurogenic pain; spondylolisthesis. Date of Evaluation: 04/18/25 Physical Therapist: Jared Carballo PT, Cert MDT, OCS Visit Plan Frequency: 2x /Week Duration: 4 Weeks Plan: Physical therapy intervention should include DLS ,postural ex's and hip strengthening with low back stretching and activity modification. Subjective Subjective: 69 year old female present with bilateral low back pain that started insidiously about 3-4 months ago. Pain is described as pinching and pulling in low back. Pt reports having injection done on and it has helped significantly after seeing Dr. Harden for MRI and x-ray. Pain is worse with laying down, walking long distances, steps, and lifting. Additionally pain is worse in the morning but after 15 min it subsides and comes and goes the rest of the day. Pain is better with heat and sitting. Pt denies pain radiating into legs. Issues with emptying bladder that come up when back pain started. Pt reports sleeping better now following the injection but was having severe pain. Pt will follow-up with pain management in a month following the injection. Occupation: bookkeeping Hobbies: baby sitting and taking care of house and , yardwork and reading with 1 kid and 3 grandchildren Pain Bilateral Back: Pain Intensity (Out of 10): 1 Pain Intensity Range: 1 and 9 Objective Objective: Posture: excessive kyphosis in thoracic spine, forward head posture and forward shoulders GAIT: reciprocal pattern Palpation: tenderness to palpation on bilateral PSIS Symmetry: WNL FALLIBILITY: hamstrings WFL Lumbar ROM: moderate loss and pain with lumbar extension ,flexion min loss ,side glides min loiss MMT: BLE grossly 4+/5 except right ride hip flex and left side hip abd. (peak force) R hip flex: 21.6 ; L hip abd 22.8 Special Tests L/S Slump test left side: Negative L/S Slump test right side: Negative Lumbar Standing: Flexion - Mechanical Response: No effect Lumbar Standing: Flexion - Symptoms During Testing: No effect Lumbar Standing: Flexion - Symptoms After Testing: No better Lumbar Standing: Extension - Mechanical Response: No effect Lumbar Standing: Extension - Symptoms During Testing: Produces Lumbar Standing: Extension - Symptoms After Testing: No better Lumbar Standing: Right Side Glides - Mechanical Response: No effect Lumbar Standing: Right Side [place] - Symptoms During Testing: No effect Lumbar Standing: Right Side [place] - Symptoms After Testing: No effect Lumbar Standing: Left Side [place] - Mechanical Response: No effect Lumbar Standing: Left Side [place] - Symptoms During Testing: No effect Lumbar Standing: Left Side [place] - Symptoms After Testing: No effect Balance/Special Test Scores Oswestry Low Back Score: 6 Goals Goal 1:: Patient to decrease pain to below an average of 2 to increase quality of life and allow to more participation in activities at home Goal Time Frame: 4-6 Weeks Goal 2:: Patient to increase lumbar ROM to minimal loss to allow for decrease pain and ease with sleep and other functional activities. Goal Time Frame: 4-6 Weeks Goal 3:: Patient to increase hip strength to ~5lbs more to stabilize lumbar spine and decrease pain in the future. Goal Time Frame: 4-6 Weeks Goal 4:: Improve Low Back Oswestry score to below 5% to improve quality of life. Goal Time Frame: 4-6 Weeks Rehabilitation Potential Physical Therapy Diagnosis: Patient presents with lumbar pain and decrease lumbar ROM and strength due to lumbar stenosis with pain worse with walking and standing thus benefit from skilled thus benefit from skilled PT Rehabilitation Potential: Good Anticipated Interventions Patient/Client Instruction: Educate patient on: Condition and Plan of Care For the Purpose of:: To decrease pain, To increase ROM, To improve muscle performance and motor function, To improve ability to perform ADL's, To improve ability of physical actions for home/community/work/leisure, To increase flexibility/ROM, To improve health and function and To improve ability to perform tasks related to life management Therapeutic Exercise to Include: Strength training, Postural training, Flexibilty training, Active ROM and Dynamic Lumbar Stabilization Comment: hip For the Purpose of:: To decrease pain, To increase ROM, To increase tolerance to activity/condition/position, To improve ability of physical actions for home/community/work/leisure, To reduce risk of recurrence, To foster healthy habits, To improve ability to perform tasks related to life management and To improve tolerance to ADL's Text: Thank you for the opportunity to evaluate your patient. For Medicare and Medicare HMO plans, please review the plan of care and approve it. It will need to be FAXED BACK to us at [phone] for Medicare purposes. For Medicare only, by signing this I certify the plan of care. Please let me know if there are questions or concerns regarding this plan of care. Physician Signature: Date:
== END 2025-05-06 19:00 | disposition home or self-care (01) ==
LOC: PT 10:30
PROVIDERS: PCP Family Medicine; Visit Provider Orthopaedic Surgery Orthopaedic Surgery of the Spine
DX: M48.061 Spinal stenosis, lumbar region without neurogenic claudication (principal); M43.10 Spondylolisthesis, site unspecified
CPT/HCPCS: 97110; 97161